=== PATIENT | male | born 1995 | race American Indian/Alaskan Native ===

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

== ENCOUNTER 2017-04-12 19:53 | Emergency (ER) | payer OTHER ==
[~2017-04-12] VITALS: Ht 185.4 cm; Wt 95.3 kg
[2017-04-12] MEDS ORDERED: ONDANSETRON 4MG/2ML VIAL (J2405) IV ONE (20:15)
[2017-04-12] MEDS ORDERED: FAMOTIDINE IV BAG 20 MG in APPROPRIATE DILUENT 1 EA IV ONE (20:15)
[2017-04-12] MEDS ORDERED: KETOROLAC 30 MG/ML VIAL (J1885) IV ONE (20:15)
[2017-04-12] MEDS ORDERED: NS 1,000 ML IV ONE (20:15)
[2017-04-12 20:41] LABS: BASO % 0.2 % (0.0-1.0); EOS # 0.1 K/mm3 (0.0-0.50); EOS % 0.8 % (0.0-3.0); LARGE UNSTAINED CELL # 0.1 K/mm3 (0.0-0.4); LARGE UNSTAINED CELL % 0.5 % (0.0-4.0); LYMPH # 1.1 K/mm3 (1.5-6.5); LYMPH % 6.9 % (24.0-44.0); MEAN CORPUSCULAR HEMOGLOBIN 31.8 pg (27.0-33.0); MEAN CORPUSCULAR HGB CONC 33.8 g/dl (32.0-36.5); MEAN CORPUSCULAR VOLUME 94.1 fl (80.0-96.0); MONO # 0.7 K/mm3 (0.0-0.8); MONO % 4.8 % (0.0-5.0); NEUTROPHILS # 13.5 K/mm3 (1.8-7.7); NEUTROPHILS % 86.8 % (36.0-66.0); PLATELET COUNT, AUTOMATED 315 k/mm3 (150-450); RED CELL DISTRIBUTION WIDTH 12.1 % (11.5-14.5); WHITE BLOOD COUNT 15.5 K/mm3 (4.0-10.0)
[2017-04-12 20:58] LABS: ALBUMIN 4.2 GM/DL (3.2-5.2); ALBUMIN/GLOBULIN RATIO 1.08 (1.00-1.93); ALKALINE PHOSPHATASE 91 U/L (45-117); ALT/SGPT 25 U/L (12-78); AMYLASE 70 U/L (25-115); ANION GAP 6 MEQ/L (8-16); AST/SGOT 20 U/L (15-37); BILIRUBIN,DIRECT 0.1 MG/DL (0.0-0.2); BILIRUBIN,TOTAL 0.7 MG/DL (0.2-1.0); BLOOD UREA NITROGEN 9 MG/DL (7-18); CALCIUM LEVEL 8.9 MG/DL (8.5-10.1); CARBON DIOXIDE LEVEL 30 MEQ/L (21-32); CHLORIDE LEVEL 103 MEQ/L (98-107); CREATININE FOR GFR 1.06 MG/DL (0.70-1.30); GLUCOSE, FASTING 96 MG/DL (70-105); POTASSIUM SERUM 3.7 MEQ/L (3.5-5.1); SODIUM LEVEL 139 MEQ/L (136-145); TOTAL PROTEIN 8.1 GM/DL (6.4-8.2)
[2017-04-12] MEDS ORDERED: ZOFR4TAB3 PO (21:47)
[2017-04-12 22:00] VITALS: BP 140/77
--- NOTE | 2017-04-13 14:42 | REP ---
ABDOMINAL SERIES: Supine erect views of the abdomen demonstrate no free air and no evidence for bowel obstruction. I do not see significantly dilated small bowel loops and no air fluid levels are seen on the upright view. There appears to be a phlebolith in the left pelvis. Spina bifida occulta is noted at S1, a normal variant. An accompanying view of the chest demonstrates no acute infiltrate. Heart is normal is size and the mediastinal silhouette is unremarkable. IMPRESSION: Essentially unremarkable abdominal series. Signed by Guillermo Wells MD 04/13/2017 07:58 P
== END 2017-04-12 22:19 | disposition home or self-care (01) ==
LOC: M ED 21:10
DX: K29.70 Gastritis, unspecified, without bleeding (principal)
CPT/HCPCS: 74022; 80048; 80076; 81001; 82150; 83690; 85025; 87086; 96365; 96366; 96375; 99282; J1885; J2405

== ENCOUNTER 2017-11-20 17:06 | Emergency (ER) | payer OTHER ==
[~2017-11-20] VITALS: Ht 182.9 cm; Wt 95.5 kg
[~2017-11-20 17:06] MED LIST: ZOFR4TAB3 PO
[2017-11-20] MEDS ORDERED: ONDANSETRON 4MG/2ML VIAL (J2405) IV ONE (18:00)
[2017-11-20] MEDS ORDERED: NS 1,000 ML IV ONE (18:00)
[2017-11-20] MEDS ORDERED: ZOFR4TAB3 PO (19:28)
[2017-11-20 19:31] VITALS: BP 146/78
== END 2017-11-20 19:40 | disposition home or self-care (01) ==
LOC: M ED 17:06
DX: A08.4 Viral intestinal infection, unspecified (principal)
CPT/HCPCS: 96361; 96374; 99284; J2405

== ENCOUNTER 2019-02-07 18:53 | Emergency (ER) | payer OTHER ==
[~2019-02-07] VITALS: Ht 185.4 cm; Wt 95.5 kg
[~2019-02-07 18:53] MED LIST changes: +ZOFR4TAB14 PO; -ZOFR4TAB3 PO
[2019-02-07] MEDS ORDERED: LIDOCAINE 2% MDV 20 ML VIAL SC ONE (19:45)
[2019-02-07 21:02] VITALS: BP 140/98
--- NOTE | 2019-02-08 04:17 | REP ---
Clinical: Trauma. Reduction. Technique: AP and lateral views of the right hand. Findings: Lateral view best demonstrates angulated fracture through the mid fourth metacarpal shaft. Impression: Angulated fracture of the fourth metacarpal midshaft. Electronically Signed by Bishnu Aguilar MD 02/08/2019 04:08 A
--- NOTE | 2019-02-08 04:23 | REP ---
Clinical: Trauma. Technique: AP, lateral, bilateral oblique views of the right hand. Findings: Angulated comminuted fracture through the fourth metacarpal shaft. Remainder examination is normal. Impression: Angulated comminuted fracture of the fourth metacarpal shaft. Electronically Signed by Bishnu Aguilar MD 02/08/2019 04:14 A
== END 2019-02-07 21:00 | disposition home or self-care (01) ==
LOC: M ED 18:53
DX: S62.324A Displaced fracture of shaft of fourth metacarpal bone, right hand, initial encounter for closed fracture (principal); X58.XXXA Exposure to other specified factors, initial encounter; Y92.098 Other place in other non-institutional residence as the place of occurrence of the external cause

== ENCOUNTER 2019-11-21 16:00 | Emergency (ER) | payer OTHER ==
[~2019-11-21] VITALS: Ht 185.4 cm; Wt 106.1 kg
[2019-11-21 16:00] VITALS: BP 143/86
[2019-11-21] MEDS ORDERED: ONDANSETRON 4 MG ORAL DISINTEGRATING TAB (Q0162 PER 1MG) PO ONE (16:45)
[2019-11-21] MEDS ORDERED: ONDA4TAB6 PO (17:09)
== END 2019-11-21 17:19 | disposition home or self-care (01) ==
LOC: M ED 16:00
DX: K52.9 Noninfective gastroenteritis and colitis, unspecified (principal)
CPT/HCPCS: 99282; Q0162